=== PATIENT | female | born 2005 | race Caucasian/White ===

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

== ENCOUNTER 2023-05-20 16:05 | Outpatient (REF) | payer OTHER, SELFPAY ==
[2023-05-23 12:57] LABS: Chlamydia Result Negative (Negative); GC Result Negative (Negative)
== END 2023-05-20 16:06 | disposition home or self-care (01) ==
LOC: LBN 16:05
PROVIDERS: PCP Nurse Practitioner Family; Visit Provider Advanced Practice Midwife
DX: N89.8 Other specified noninflammatory disorders of vagina (principal); Z11.3 Encounter for screening for infections with a predominantly sexual mode of transmission
CPT/HCPCS: 87491; 87591; 87480; 87510; 87660

== ENCOUNTER 2023-07-18 08:13 | Emergency (ER) | payer OTHER, SELFPAY ==
[2023-07-18 08:16] VITALS: BP 140/91; PULSE 120; RESP 16; TEMP 37.1; O2SAT 99
--- NOTE | 2023-07-18 09:08 | ED.GENADUL_ITS ---
Discharge Plan Disposition Patient Disposition: Home Condition: Stable Discharge Details Clinical Impression: Influenza A Primary Care Provider: Rosaura Ochoa ED Provider: Dylon Quiroz Home Meds and New Rx's Prescriptions: New oseltamivir [Tamiflu] 75 mg capsule 75 mg PO BID 5 Days Qty: 10 0RF Continued Kyleena 17.5 mcg/24 hrs (5 yrs) 19.5 mg intrauterine device 1 device intrauterine ONCE Qty: 1 0RF Discharge Instructions Instructions: Influenza (ED) Additional Instructions: Please drink plenty of fluid to stay hydrated. Please take ibuprofen over the counter. Take 600mg by mouth every 6 hours as needed for aches/fever. Please contact your primary care physician to arrange follow-up. Return to the ER immediately for any worsening or new concerning symptoms. Referrals: Rosaura Ochoa, FISH FRYER [Primary Care Provider] - Discharge Data Discharge Date/Time-TO BE ENTERED AT DEPARTURE: 07/18/23 09:50 HPI General Mode of arrival: ambulatory . Date/Time Provider Initiated Documentation: 07/18/23 08:19 . Limitations to Documentation: no limitations . Information obtained by: patient . HPI Narrative: 18-year-old female here with flulike illness in the past 2 days. Patient has had upper respiratory tract infection symptoms with fatigue since yesterday. 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 No chest pain or shortness of breath. Related Data Home Medications Medication Instructions Recorded Confirmed levonorgestrel 17.5 mcg/24 hrs 1 device intrauterine ONCE #1 ea 05/17/22 07/18/23 (5yrs) 19.5mg intrauterine device (Kyleena) oseltamivir 75 mg capsule (Tamiflu) 75 mg PO BID 5 days #10 caps 07/18/23 Previous Rx's Medication Instructions Recorded levonorgestrel 17.5 mcg/24 hrs 1 device intrauterine ONCE #1 ea 05/17/22 (5yrs) 19.5mg intrauterine device (Kyleena) oseltamivir 75 mg capsule (Tamiflu) 75 mg PO BID 5 days #10 caps 07/18/23 Allergies Allergy/AdvReac Type Severity Reaction Status Date / Time No Known Allergies Allergy Verified 07/18/23 08:48 General Stated Complaint: RespSymp REBA: 4 Review of Systems Constitutional Constitutional: Denies headache(s) ENT Ears, Nose, Mouth, and Throat: Denies headache(s), Denies hoarseness, Denies neck pain and Denies throat swelling Respiratory Respiratory: Reports as per HPI and Reports cough Musculoskeletal Musculoskeletal: Denies neck pain Neurologic Neurologic: Denies headache(s) Allergic/Immunologic Allergic/Immunologic: Denies throat swelling Exam Const General: cooperative and no acute distress HENMT Mouth: mucous membranes dry Neck Neck: trachea midline and supple Resp Auscultation: clear to auscultation bilaterally, no rales, no rhonchi and no wheezes Cardio Rate: tachycardic Rhythm: regular rhythm GI Palpation: soft, not firm, no guarding, no masses, not rigid and nontender Skin General skin exam: no rashes or lesions noted Neuro General: patient alert, patient awake, patient oriented x3 and tone normal Psych Appearance: grossly normal Mental Status: mental status grossly normal Course Vital Signs Vital signs: Vital Signs Temperature 37.1 C 07/18/23 08:16 Pulse 120 H 07/18/23 08:16 Respiratory Rate 16 07/18/23 08:16 Blood Pressure 140/91 H 07/18/23 08:16 Pulse Oximetry 99 07/18/23 08:16 Temperature 37.1 C 07/18/23 08:16 Temperature Source Oral 07/18/23 08:16 Pulse 120 H 07/18/23 08:16 Respiratory Rate 16 07/18/23 08:16 Respiratory Effort Normal 07/18/23 08:46 Respiratory Depth Normal 07/18/23 08:46 Blood Pressure 140/91 H 07/18/23 08:16 Blood Pressure Position Sitting 07/18/23 08:16 Pulse Oximetry 99 07/18/23 08:16 Oxygen Delivery Method Room Air 07/18/23 08:16 Oxygen Flow Rate 0 07/18/23 08:16 Pain Level 0 07/18/23 08:16 Comment Took Dayquill upon waking 07/18/23 08:16 Medical Decision Making 18-year-old female here with flulike illness in the past 2 days. Patient is saturating well in no respiratory distress. Patient is normotensive. Tachycardic. POC flu/covid tresting positve for flu. Patient is preschoool teacher and desires tamiflu. Will prescribe tamiflu. Patient was given oral rehydration and heart rate improved on reassessment. Usual customary discharge instructions were reviewed. Lab Data Lab results reviewed: Yes I reviewed the patient's lab results. Labs: Laboratory Tests Range/Units 07/18/23 08:30 COVID-19 Source Nasopharynx SARS-CoV-2 (PCR) (Negative) Negative Influenza Type A (PCR) (Negative) Positive A Influenza Type B (PCR) (Negative) Negative RSV (PCR) (Negative) Negative Quality:SDOH Health Related Social Needs: No Data to Display PFSH All Active Problems Influenza A (Acute) Encounter for screening examination for sexually transmitted disease (Acute) Vaginal discharge (Acute) URI (upper respiratory infection) (Acute) IUD surveillance (Acute 05/17/22) Kyleena Acne (Acute) Hypoglycemia (Acute) Stress headaches (Acute) Dizziness (Acute) Migraine headache without aura (Acute) Family history of cerebral aneurysm (Acute) BMI (body mass index), pediatric, 5% to less than 85% for age (Chronic 10/21/16) Medical History Wears glasses Chest/Back History of reactive airway disease 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 BW 3 lbs 6 ounces Acne Surgical History H/O wisdom tooth extraction December 2020 Family History grandparent Diabetes Essential hypertension gm Cancer Mother Age: 48 Migraine headache Sister Age: 25 Migraine headache Father Age: 54 Essential hypertension Social History Smoking/Tobacco Use Status: Never Second Hand Exposure: No Smoking risk assessment performed?: Yes Alcohol Intake: never Drug use: Never Substance use type: does not use Education Level: high school Details: [employer] 2020- Pets and animals: Yes Pets and animals: dog(s) Do you feel safe at home: Yes Do you feel safe in your relationship?: Yes Additional Social history: Lives with her parents and her sister Sister: Frandy Zuleta : 12/02/97 Mom works at [address] as a legal secretary receptionist Dad works at [employer] as a generating station mechanic Female Reproductive History Menstrual Age of Menarche: 10 Duration of menses: 6-7 days control method: progestin IUCD History History 0 Para Hx # Term Pregnancies Multiple births Hx # Pregnancies Ectopic pregnancies AB induced Hx Number of Living Children AB spontaneous PAWSS Have you Been Recently Intoxicated or Drunk Within the Last 30 days?: No Have you Ever Experienced Previous Episodes of Alcohol Withdrawal?: No Have you ever Experienced Withdrawal Seizures?: No Have you ever Experienced Delirium Tremens(DT)s?: No Have you ever undergone Alcohol Rehabilitation Treatment (i.e, inpt ot outpatient treatment programs)?: No Have you ever Experienced Blackouts?: No Have you ever Combined Alcohol with other Downers within the last 90 days?: No Have you ever Combined Alcohol with any other Substance of Abuse during the last 90 days?: No Result: 0
[2023-07-18 09:32] LABS: COVID-19 PCR Negative (Negative); Influenza A PCR Positive (Negative); Influenza B PCR Negative (Negative); RSV PCR Negative (Negative)
[2023-07-18 09:46] VITALS: BP 127/79; PULSE 96; RESP 16; TEMP 37.1; O2SAT 96
[2023-07-18 09:46] LABS: Source Nasopharynx
== END 2023-07-18 09:50 | disposition home or self-care (01) ==
PROVIDERS: Emergency Provider Student in an Organized Health Care Education/Training Program; PCP Nurse Practitioner Family
DX: J10.1 Influenza due to other identified influenza virus with other respiratory manifestations (principal); Z11.52 Encounter for screening for COVID-19
CPT/HCPCS: 87426; 87637; 99283

== ENCOUNTER 2024-08-09 09:23 | Outpatient (REF) | payer OTHER, SELFPAY ==
[2024-08-10 12:02] LABS: Chlamydia Result Negative (Negative); GC Result Negative (Negative)
== END 2024-08-09 09:24 | disposition home or self-care (01) ==
LOC: LBN 09:23
PROVIDERS: PCP Nurse Practitioner Family; Visit Provider Obstetrics & Gynecology
DX: N76.0 Acute vaginitis (principal)
CPT/HCPCS: 87491; 87591

== ENCOUNTER 2024-08-30 08:43 | Emergency (ER) | payer OTHER, SELFPAY ==
[2024-08-30] VITALS (7 sets, daily range): BP systolic 114–125; BP diastolic 68–74; PULSE 98–109; RESP 124; TEMP 36.2; O2SAT 98–100
--- NOTE | 2024-08-30 09:47 | W.ED.GENAD ---
Discharge Plan Disposition Patient Disposition: Home Condition: Good Discharge Details Clinical Impression: Localized enlarged lymph nodes, Leukocytosis Primary Care Provider: Rosaura Ochoa ED Provider: Samantha Abraham Home Meds and New Rx's Prescriptions: Continued Kyleena 17.5 mcg/24 hrs (5 yrs) 19.5 mg intrauterine device 1 device intrauterine ONCE Qty: 1 0RF clindamycin phosphate 1 % lotion 1 applic topical BID Qty: 60 0RF albuterol sulfate 90 mcg/actuation HFA aerosol inhaler 2 puff inhalation Q6H PRN (Reason: shortness of breath or wheezing) Qty: 8.5 0RF fluconazole 150 mg tablet 150 mg PO Q3D Qty: 2 1RF Discharge Instructions Additional Instructions: As we discussed, your ultrasound showed that the swelling in the inguinal area is an enlarged lymph node. You may use heat or cool compresses to help with the discomfort and swelling. Likely, you are fighting an infection even if you are currently not having significant symptoms. Your labs did show an elevated white count which does go along with fighting an infection but other labs looked normal. As we discussed, your syphilis is still pending, this will take a couple days to get back. You may discuss further with women's wellness if you do not hear from us. Please keep your appointment next week with women's wellness. Even though they had completed the STD panel a few weeks ago, you may want to discuss recurrent symptoms with them and see if repeating these is appropriate. If you develop any new or worsening symptoms please seek care urgently once again. Stand Alone Forms: Work Release Referrals: Rosaura Ochoa, [employer] [Primary Care Provider] - Discharge Data Discharge Date/Time-TO BE ENTERED AT DEPARTURE: 08/30/24 13:13 HPI General Date/Time Provider Initiated Documentation: 08/30/24 09:01. HPI Narrative: HISTORY OF PRESENT ILLNESS A 19-year-old female presents with left-sided groin pain since last Tuesday. Initially, she thought it was a boil due to past similar occurrences. The pain is localized in the thigh crease, not the genital area. She felt unwell at work on Tuesday and suspected she had a fever but couldn't confirm it. She took a sick day on Tuesday and experienced body aches and night sweats, believing the fever broke. She has less body aches today but significant pain when walking. There is no drainage, and the sensation is subcutaneous. She has no urinary issues or abnormal vaginal discharge and is unlikely to be . There is no abdominal pain, and the onset was before shaving. She has a slightly stuffy nose but no cough. There is no pain during urination, chest pain, shortness of breath, or changes in bowel movements. She occasionally experiences pain radiating down her thigh. There has been no weight loss, but she has been more fatigued and irritable this week. She has not traveled recently. She is sexually active with three partners, most recently one. She has a Pap smear scheduled next Tuesday. She had STI testing 2 weeks ago, states that these were negative, no new partners since then. Tested for GC/chlamydia. She had a similar condition at age 11 that resolved spontaneously. Her last menstrual period was 2-3 weeks ago. She had a yeast infection in early August 2024 and tested negative for chlamydia and gonorrhea. She had mononucleosis in September 2023. She reports bilateral intermittent lower back pain, no acute change in this. This note was created with [employer] and created with patient consent. Related Data Home Medications ?Medication ?Instructions ?Recorded ?Confirmed levonorgestrel 17.5 mcg/24 hr (up 1 device intrauterine ONCE #1 ea 05/17/22 07/02/24 to 5 yrs) 19.5mg intrauterine device (Kyleena) clindamycin phosphate 1 % lotion 1 applic topical BID #60 mL 07/02/24 07/02/24 albuterol sulfate 90 mcg/actuation 2 puff inhalation Q6H PRN 07/26/24 07/26/24 aerosol inhaler shortness of breath or wheezing #8.5 grams fluconazole 150 mg tablet 150 mg PO Q3D 2 doses #2 tabs 08/09/24 08/09/24 Previous Rx's ?Medication ?Instructions ?Recorded levonorgestrel 17.5 mcg/24 hr (up 1 device intrauterine ONCE #1 ea 05/17/22 to 5 yrs) 19.5mg intrauterine device (Kyleena) clindamycin phosphate 1 % lotion 1 applic topical BID #60 mL 07/02/24 albuterol sulfate 90 mcg/actuation 2 puff inhalation Q6H PRN 07/26/24 aerosol inhaler shortness of breath or wheezing #8.5 grams fluconazole 150 mg tablet 150 mg PO Q3D 2 doses #2 tabs 08/09/24 Allergies Allergy/AdvReac Type Severity Reaction Status Date / Time No Known Allergies Allergy Verified 07/26/24 15:28 General Stated Complaint: GenMedical REBA: 4 Review of Systems Constitutional Constitutional: Reports as per HPI Musculoskeletal Musculoskeletal: Reports as per HPI Integumentary/Breasts Skin/Breast: Reports as per HPI Neurologic Neurologic: Reports as per HPI, Denies sensory deficit and Denies paresthesias Exam Const General: cooperative, healthy appearing, comfortable, no acute distress and well developed Nutritional Appearance: average body habitus and well nourished Orientation: alert and awake Resp Effort & Inspection: normal respiratory effort, able to speak in complete sentences and no respiratory distress Auscultation: clear to auscultation bilaterally Cardio Rate: regular rate Rhythm: regular rhythm Heart Sounds: S1 normal and S2 normal GI Inspection: normal to inspection Palpation: soft, no hepatosplenomegaly, no guarding and nontender Percussion: normal to percussion Auscultation: normal bowel sounds Skin General skin exam: erythema (slightly pink over indurated area at the groin) and induration Neuro General: patient alert and patient awake Cognition: normal cognition Speech: speech normal Gait: normal gait Sensory Exam: no sensory deficits noted Extrem Upper/lower leg/hip images: 1. Area of swelling about 3 cm in diameter. Area over this is slightly pink but does not appear frankly cellulitic. She is 2+ distal pulses. Intact sensation. No overlying skin disruption or opening of the skin. No drainage. Patient does shave the pubic region but this does not appear to be acutely irritated such as with acute folliculitis. This does not track further towards the genitals. Course Vital Signs Vital signs: Vital Signs Temperature 36.2 C L 08/30/24 08:48 Respiratory Rate 124 H 08/30/24 08:48 Pulse Oximetry 98 08/30/24 08:48 Temperature 36.2 C L 08/30/24 08:48 Respiratory Rate 124 H 08/30/24 08:48 Pulse Oximetry 98 08/30/24 08:48 Oxygen Delivery Method Room Air 08/30/24 08:48 Oxygen Flow Rate 0 08/30/24 08:48 Medical Decision Making Patient is pleasant 19-year-old female presented with chief complaint of left-sided groin pain. Pain began about 3 days ago. States that she has had some fevers, chills general unwell and out of this area of induration and discomfort. She reports that she has had an abscess historically was questioning if she may have or had a recurrent 1. She denies any abdominal pain, nausea, vomiting. No vaginal discharge, change in bowel or bladder habits. No UTI symptoms. Was seen by her CARDIOLOGY CLINICAL NURSE SPECIALIST a few weeks ago, negative for STI at that time with no new sexual contacts. Initial Assessment: Patient presents with groin pain, intermittent night sweats, fevers, and body aches. Enlarged lymph node noted in the inguinal region. Differential Diagnosis: Primarily concerned for abscess, particularly as the patient's had these historically. Given the size of this I do feel that ultrasound is appropriate we will move forward with this. Ultrasound was reviewed by the radiologist and they advised that this is not in fact an abscess but more concerning for a reactive lymph node. Patient is not having any abdominal pain prompting further imaging here, no vaginal or urinary symptoms. She has felt generally unwell but no acute findings or acute focal features. Differential updated to: - Leukemia: Less likely, but considered due to systemic symptoms. - Viral illness: Likely cause of reactive lymph nodes and systemic symptoms. ED Course: - Ultrasound performed: Large reactive lymph node (2.4 cm) and several others noted. - Blood work ordered. - No further imaging planned at this time. - Use compresses for discomfort. - Tylenol or ibuprofen as needed. - Work note provided until Tuesday due to swelling. - Monitor symptoms closely. Final Assessment: Groin pain with enlarged lymph node likely due to viral illness. Blood work to rule out other causes. No imaging beyond ultrasound obtained. Clinical Impression: - Groin pain - Enlarged lymph node - Viral illness Disposition: - Discharge - Follow-Up: Monitor symptoms closely and seek medical attention if worsens. Follow-up appointment with women's wellness next week as previously scheduled. Patient Education: Discussed use of compresses for discomfort and [id number] pain relief. MDM Components Evaluation: - Number of Differential Diagnoses or Management Options: Leukemia, viral illness, mononucleosis, STI. - Amount and Complexity of Data Reviewed: Ultrasound results, blood work. - Risk of Complication and Morbidity or Mortality: Low risk based on current assessment, but monitoring for worsening symptoms. Quality:SDOH Health Related Social Needs: No Data to Display PFSH All Active Problems (Updated 08/30/24 @ 13:02 by JOSHUA Maza) Leukocytosis (Acute) Localized enlarged lymph nodes (Acute) Vaginitis (Acute) Suspect yeast 08/09/2024 Bacterial vaginosis (Acute) Encounter for screening examination for sexually transmitted disease (Acute) Vaginal discharge (Acute) URI (upper respiratory infection) (Acute) IUD surveillance (Acute 05/17/22) Kyleena Acne (Acute) Hypoglycemia (Acute) Stress headaches (Acute) Dizziness (Acute) Migraine headache without aura (Acute) Family history of cerebral aneurysm (Acute) BMI (body mass index), pediatric, 5% to less than 85% for age (Chronic 10/21/16) Medical History Wears glasses Chest/Back History of reactive airway disease 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 Pets and animals: Yes Pets and animals: dog(s) Do you feel safe at home: Yes Do you feel safe in your relationship?: Yes Additional Social history: Lives with her parents and her sister Sister: Frandy Zuleta : 12/02/97 Mom works at [employer] as a secretary board of commissioners Dad works at [employer] as a rail car mechanic Female Reproductive History Menstrual Age of Menarche: 10 Duration of menses: 6-7 days control method: progestin IUCD History History 0 Para Hx # Term Pregnancies Multiple births Hx # Pregnancies Ectopic pregnancies AB induced Hx Number of Living Children AB spontaneous
--- NOTE | 2024-08-30 11:00 | DI.US_ITS ---
Exam(s) US SOFT TISS EXTREMITY/GROIN EXAM: US SOFT TISS EXTREMITY/GROIN CLINICAL HISTORY: left groin abscess. TECHNIQUE: Ultrasound was performed using standard protocol. COMPARISON: No exams were available for comparison FINDINGS: Sonographic assessment utilizing grayscale and color Doppler imaging was performed and targeted to th e area of clinical concern. There is edema in the subcutaneous fat of the left groin region. There are several enlarged hyperem ic lymph nodes. There is a 2.4 x 1.1 x 1.4 centimeter hypoechoic corresponding to the palpable abnor mality. It shows blood flow and likely represents an enlarged reactive lymph node. IMPRESSION: Inflammation in the left groin region. The palpable abnormality corresponds to a hypoechoic area wit h blood flow which likely represents a reactive lymph node. Other smaller lymph nodes are present in the area. DATA REPOSITORY:
[2024-08-30 12:22] LABS: Abs Immature Grans 0.06 10^3/uL (0.0-0.06); Absolute Basophil Count 0.04 10^3/uL (0.0-0.2); Basophils % 0.3 %; Eosinophils % 0.1 %; HCT 44.1 % (36.0-46.0); HGB 14.5 g/dL (11.2-15.7); Immature Grans % 0.4 %; Lymphocytes % 8.3 %; MCH 31.6 pg (27.0-33.0); MCHC 32.9 % (32.0-36.0); MCV 96 fL (80-95); MPV 9.3 fL (8.0-11.0); Neutrophils % 85.9 %; Platelet Count 290 10^3/uL (130-400); RBC 4.59 10^6/uL (3.93-5.22); RDW-SD 42.5 fL; WBC 13.67 10^3/uL (4.4-10.8)
[2024-08-30 12:30] LABS: Absolute Eosinophil Count 0.01 10^3/uL (0.0-0.7); Absolute Lymphocyte Count 1.13 10^3/uL (1.2-3.4); Absolute Monocyte Count 0.68 10^3/uL (0.1-0.8); Absolute Neutrophil Count 11.74 10^3/uL (1.2-6.7); Mono Screening Negative (Negative)
[2024-08-30 12:38] LABS: Bilirubin Negative (Negative); Blood Negative (Negative); Clarity Sl Cloudy (Clear); Glucose Negative (Negative); Ketones 15 mg/dL (Negative); Leukocyte Esterase Small (Negative); Nitrite Negative (Negative); Specific Gravity 1.015 (1.005-1.025); Urobilinogen 0.2 mg/dL (Up to 0.2)
[2024-08-30 12:48] LABS: ALT 19 U/L (14-59); AST 14 U/L (15-37); Albumin 3.7 g/dL (3.4-5.0); Alkaline Phosphatase 57 U/L (46-116); Anion Gap 4.8 mmol/L (3-11); BUN 6 mg/dL (7-18); Bilirubin, Total 0.6 mg/dL (0.2-1.0); CO2 29.2 mmol/L (21.0-32.0); CREATININE 0.6 mg/dL (0.55-1.02); Chloride 103 mmol/L (98-107); Estimated GFR 130.88 (mL/min/1.73m2); Glucose 100 mg/dL (74-106); Magnesium 2.1 mg/dL (1.8-2.4); Potassium 3.7 mmol/L (3.5-5.1); Sodium 137 mmol/L (136-145); Total Protein 7.8 g/dL (6.4-8.2)
[2024-08-30 12:53] LABS: Bacteria Few HPF (Negative); C & S Indicated? No; Casts Negative LPF (Negative); Crystals Negative HPF (Negative); Epithelial Cells Many HPF (Negative); Mucus Trace (Negative); RBC 0-2 HPF (0-2)
[2024-08-31 09:54] LABS: Syphilis Serology (RPR) Negative (Negative)
== END 2024-08-30 13:13 | disposition home or self-care (01) ==
PROVIDERS: Emergency Provider Physician Assistant; PCP Nurse Practitioner Family
DX: R59.0 Localized enlarged lymph nodes (principal); D72.829 Elevated white blood cell count, unspecified
CPT/HCPCS: 99283; 99284; 81025; 36415; 76882; 80053; 81003; 81015; 83735; 85025; 86308; 86592

== ENCOUNTER 2024-09-05 14:04 | Outpatient (REF) | payer OTHER, SELFPAY | END 2024-09-05 14:05 | disposition home or self-care (01) | LOC: LBN 14:04 | PROVIDERS: PCP Nurse Practitioner Family; Referring Provider Student in an Organized Health Care Education/Training Program; Visit Provider Student in an Organized Health Care Education/Training Program | DX: L02.214 Cutaneous abscess of groin (principal) | CPT/HCPCS: 87077; 87070; 87205 ==

== ENCOUNTER 2024-11-07 16:00 | Outpatient (REF) | payer OTHER, SELFPAY ==
--- NOTE | 2024-11-07 15:40 | PAPFT_PTH ---
PATIENT: Celeste Zuleta LOC: [facility] U#:[id number] AGE/SX: 19/F ROOM: RE11/07/[address]: Debi Mejia DO : 2005 BED: DIS: 11/07/2024 SPEC #: [id number] RECD: 11/07/24 17:14 STATUS: ADOREKellen REQ #: [id number] PATRICIA: 11/07/24 15:[address]: Debi Mejia DEPT: [facility] Cytology RECD BY: Sommer Bolden ENTERED: 11/07/24 17:14 SP TYPE: PAPFT OTHR DR: Rosaura Ochoa Tissues: 1 - CX/ENDOCX FOR PAP SMEARS Procedures: PAP THIN PREP/[facility] Screening HPV DNA PROBE Comments: [id number] (HPV 16 & 18/45) (CHLAMYDIA/GC)
[2024-11-08 12:05] LABS: GC Result Negative (Negative)
[2024-11-08 12:46] LABS: Chlamydia Result Positive (Negative)
== END 2024-11-07 16:01 | disposition home or self-care (01) ==
LOC: LBN 16:00
PROVIDERS: PCP Nurse Practitioner Family; Visit Provider Obstetrics & Gynecology
DX: Z12.4 Encounter for screening for malignant neoplasm of cervix (principal)
CPT/HCPCS: 87491; 87591; 88142; 87624

== ENCOUNTER 2024-12-07 10:14 | Outpatient (REF) | payer OTHER, SELFPAY ==
[2024-12-10 12:06] LABS: Chlamydia Result Negative (Negative); GC Result Negative (Negative)
== END 2024-12-07 10:15 | disposition home or self-care (01) ==
LOC: LBN 10:14
PROVIDERS: PCP Nurse Practitioner Family; Visit Provider Obstetrics & Gynecology
DX: Z20.2 Contact with and (suspected) exposure to infections with a predominantly sexual mode of transmission (principal)
CPT/HCPCS: 87491; 87591

== ENCOUNTER 2024-12-07 14:19 | Outpatient (CLI) | payer OTHER, SELFPAY ==
[2024-12-07 19:34] LABS: HIV-1/2 Ag & Ab Screen Negative (Negative)
[2024-12-07 22:22] LABS: Hepatitis C Ab w Rflx HCV PCR Negative (Negative)
[2024-12-10 11:01] LABS: Syphilis Serology (RPR) Negative (Negative)
== END 2024-12-07 14:20 | disposition home or self-care (01) ==
LOC: LBO 14:19
PROVIDERS: PCP Nurse Practitioner Family; Visit Provider Obstetrics & Gynecology
DX: Z20.2 Contact with and (suspected) exposure to infections with a predominantly sexual mode of transmission (principal)
CPT/HCPCS: 36415; 86803; 87340; 87389; 86592

== ENCOUNTER 2025-02-28 13:48 | Outpatient (REF) | payer OTHER, SELFPAY ==
[2025-03-01 11:09] LABS: Chlamydia Result Negative (Negative); GC Result Negative (Negative)
== END 2025-02-28 13:49 | disposition home or self-care (01) ==
LOC: LBN 13:48
PROVIDERS: PCP Student in an Organized Health Care Education/Training Program; Visit Provider Obstetrics & Gynecology
DX: Z11.3 Encounter for screening for infections with a predominantly sexual mode of transmission (principal)
CPT/HCPCS: 87491; 87591